=== PATIENT | male | born 1975 ===

== ENCOUNTER → 2017-07-08 | Outpatient (CLI) | payer SELFPAY ==
--- NOTE | 2017-07-08 14:52 | RAD ---
Three-view right shoulder radiographs 07/08/2017 Clinical history: Right shoulder pain post injury earlier today. Large box fell on shoulder. AP internal and external rotation and transscapular digital radiographs of the right shoulder were obtained. No fracture or dislocation of the right shoulder is seen. No radiopaque foreign body is noted. Mild degenerative changes are seen involving the right AC joint. Impression: No fracture or dislocation of the right shoulder is seen.
== END | disposition home or self-care (01) ==
LOC: DXRADRC 14:29
PROVIDERS: ATTEND General Practice
DX: S40.011A Contusion of right shoulder, initial encounter (principal); X58.XXXA Exposure to other specified factors, initial encounter; Y93.89 Activity, other specified; Y92.89 Other specified places as the place of occurrence of the external cause; Y99.8 Other external cause status
CPT/HCPCS: 73030